=== PATIENT | male | born 1980 | race Caucasian/White ===

== ENCOUNTER 2017-01-20 10:05 | Day surgery (SDC) | payer OTHER ==
[~2017-01-20] VITALS: Ht 182.9 cm; Wt 86.5 kg
[2017-01-20] VITALS (12 sets, daily range): BP systolic 103–185; BP diastolic 59–129; PULSE 80–100; RESP 10–24; Ht 182.9 cm; Wt 86.5 kg
[2017-01-20] MEDS ORDERED: ROPIVACAINE 0.5 % 30 ML VIAL ONE ×2 (11:14→11:36)
[2017-01-20] MEDS ORDERED: METOCLOPRAMIDE 10 MG INJ ONE (11:36)
[2017-01-20] MEDS ORDERED: FENTAnyl 50 MCG/ML VIAL ONE (11:36)
[2017-01-20] MEDS ORDERED: PROPOFOL 20 ML ONE (11:36)
[2017-01-20] MEDS ORDERED: MIDAZOLAM 1 MG/ML 2 ML INJ ONE (11:36)
[2017-01-20] MEDS ORDERED: THROMBIN 5000 UNIT VIAL ONE (12:02)
[2017-01-20] MEDS ORDERED: HEPARIN 1000 UNITS/ML 10 ML INJ ONE (12:03)
--- NOTE | 2017-01-20 12:33 | HPN ---
Date/Time of Note Date/Time of Note DATE: 01/20/17 TIME: 12:33 Interval H&P Admission Note Pt. seen H&P reviewed: No system changes RANDOLPH MIGUEL MD Jan 20, 2017 12:33
[2017-01-20] MEDS ORDERED: SODIUM CL BACTERIOSTATIC 30 ML INJ ONE (12:51)
[2017-01-20] MEDS ORDERED: ONDANSETRON 4 MG INJ ONE (12:59)
[2017-01-20] MEDS ORDERED: KETOROLAC 30 MG INJ ONE (12:59)
[2017-01-20] MEDS ORDERED: HYDROmorphONE 2 MG/ML SYG ONE (12:59)
[2017-01-20] MEDS ORDERED: morphine 10 MG INJ IV PRN (13:00)
[2017-01-20] MEDS ORDERED: morphine 2 MG INJ IV PRN (13:00)
[2017-01-20] MEDS ORDERED: EPHEDrine SULFATE 50 MG/5 ML SYG ONE (13:06)
[2017-01-20] MEDS ORDERED: THROMBIN(HUM PLAS)/FIBRINOG/CA 5 ML VIAL TOP ONE (13:37)
[2017-01-20] MEDS ORDERED: POLYMYXIN/BACITRACIN 1L IRRIG IRR ONE (14:26)
[2017-01-20] MEDS ORDERED: POLYMYXIN/BACITRACIN 1L IRRIG ONE (14:51)
[2017-01-20] MEDS ORDERED: PROPOFOL 40 ML ONE (15:50)
[2017-01-20] MEDS ORDERED: BACITRACIN/POLYMYXIN 28.35 GM OINT TOP ONE (16:17)
[2017-01-20] MEDS ORDERED: HYDROmorphONE (0.2 MG/ML) 10ML SYG IV PRN ×2 (16:30)
[2017-01-20] MEDS ORDERED: hydrALAzine 20 MG INJ IV PRN (16:30)
[2017-01-20] MEDS ORDERED: MEPERIDINE 25 MG INJ IV PRN (16:30)
[2017-01-20] MEDS ORDERED: METOCLOPRAMIDE 10 MG INJ IV PRN (16:30)
[2017-01-20] MEDS ORDERED: DIPHENHYDRAMINE 50 MG INJ IV PRN (16:30)
[2017-01-20] MEDS ORDERED: LABETALOL HCL 20MG INJ IV PRN (16:30)
[2017-01-20] MEDS: HYDROmorphONE (0.2 MG/ML) 10ML SYG IV PRN ×2 (17:06→17:12)
[2017-01-20] MEDS: ONDANSETRON 4 MG INJ IV PRN ×2 (17:06→18:40)
--- NOTE | 2017-01-20 17:17 | SIPON ---
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 Operation/Procedure Performed Right knee arthroscopy with ACL reconstruction with hamstring autograft Right knee arthroscopy with partial medial meniscectomy Right knee arthroscopy with lateral meniscus repair Right knee arthroscopy with chondroplasty of the patellafemoral and medial compartment Application of bone marrow aspirate concentrate to the right knee Surgeon see signature line assistant professor of biochemistry RANDOLPH MIGUEL MD Second assist: ELIZABETH CIFUENTES Anesthesia: general, other (FASCIA FLASH) Estimated blood loss: minimal Transfusion Required none Specimen NONE Grafts/Implants MITEK ADJUSTABLE LOOP BUTTON MITEK 6-8 BIOINTRAFIX MITEK CANCELLOUS SCREW AND WASHER ARTHREX KIMBERLY BONE MARROW ASPIRATE CONCENTRATE Complications none RANDOLPH MIGUEL MD Jan 20, 2017 17:16
--- NOTE | 2017-01-20 17:17 | OPR ---
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 Operation/Procedure Performed Right knee arthroscopy with ACL reconstruction with hamstring autograft Right knee arthroscopy with partial medial meniscectomy Right knee arthroscopy with lateral meniscus repair Right knee arthroscopy with chondroplasty of the patellafemoral and medial compartment Application of bone marrow aspirate concentrate to the right knee Surgeon RANDOLPH MIGUEL MD Electrical Machinist FREDDIE CIFUENTES CRNA Anesthesia Type: general, other (FASCIA ILIACUS) Anesthesiologist: SAJI PRETTY MD Tourniquet Time: 110 MIN AT 250 MMhG Estimated Blood Loss: 0 - 10 ml's Transfusion none Specimen NONE Grafts/Implants MITEK ADJUSTABLE LOOP BUTTON MITEK 6-8 BIOINTRAFIX MITEK CANCELLOUS SCREW AND WASHER ARTHREX KIMBERLY BONE MARROW ASPIRATE CONCENTRATE Tubes/Drains NONE Complications none Pt Condition Post Procedure: stable Disposition: PACU Indications Patient is a 36-year-old gentleman sustained a right knee ACL rupture and meniscal tear several months ago. He was able to go through surgery at that time due to having to go to [facility]. He continued to have ongoing pain and instability and was indicated for surgical fixation. Risk Note: Patient was explained the risks and benefits of surgery and the patient's [facility] language including not limited to infection, bleeding, injury to blood vessels, nerves, ligaments or tendons. Risks of anesthesia, deep vein thrombosis and need for reduce future surgery. Patient acknowledged these risk by signing the surgical consent form. Procedure Description The patient was brought to the operating room and placed supine on the operating room table. General anesthesia was induced and a fascia iliacus block was placed. The right lower extremity was examined under anesthesia. Range of motion was 0 degrees of extension to 135 degrees of flexion. There was no varus or valgus or posterolateral instability. He had no instability to varus or valgus stress at 0 or 30 degrees. He had a 2+ Ricky and drawer with a positive pivot shift The right Lower extremity was then prepped and draped in the usual fashion. A tourniquet was placed proximally on the thigh over a bias stockinette. A timeout was taken and all parties in the room agreed as the correct patient, extremity and procedure. Attention was initially turned to the right iliac crest and using a small stab incision And a Jamshidi needle was placed into the right iliac crest and 60 cc of bone marrow aspirate was withdrawn and sent off for centrifugation to become a bone marrow aspirate concentrate. The wound was then irrigated and closed with 4-0 Monocryl and Steri-Strips and Tegaderm was placed over the wound. Attention was then turned to the knee. A standard anterolateral parapatellar stab wound was created. The knee joint was entered with a blunt-tipped obturator, followed by the 30-degree video arthroscope. An anteromedial portal was established under arthroscopic control. A routine arthroscopic survey was performed. The suprapatellar pouch was unremarkable. The undersurface of the patella was well-preserved. The patella appeared to track centrally within the trochlear groove. Trochlea showed grade II chondromalacia. The medial and lateral gutters were inspected and there was no loose body seen. There was no hypertrophied plica. The popliteal hiatus was entered and was unremarkable. The lateral compartment was entered. The lateral femoral condyle exhibited no chondromalacia and the lateral tibial plateau showed no chondromalacia. There was no chondromalacia adjacent to the notch. There was no chondromalacia along the central aspect of the weight bearing lateral tibial plateau. The lateral meniscus was examined and there is shown to be a radial tear in the white white and red white zone of the posterior horn extending into becoming a cleavage tear in the posterior horn and mid body. The white white zone tear was debrided with biters and naya. And then the area of the red white tear was gently debrided with a rasp, meniscal rasp, and then repaired using 3 Salas [employer] Nep[employer] fast T fix meniscal repairs sutures. At the end of the repair the meniscus was found to be firm and stable. The intercondylar notch was visualized. The anterior cruciate ligament was torn from its femoral origin. There was an empty lateral wall. Posteromedially there was no loose body seen. The posterior cruciate ligament was visualized and appeared intact. The medial compartment was entered. The articular surfaces of the medial femoral condyle and medial tibial plateau were visualized. There was grade I/II chondromalacia of the medial femoral condyle in an area of the central weightbearing portion felt soft on probing but did not break through to show a formal osteochondral defect. The meniscus was probed and found to be torn in both the posterior horn mid body and anterior horn which was debrided with both naya and biters to a firm stable rim. Set at 55 Attention was turned to reconstruction of the anterior cruciate ligament. Following exsanguination with an Esmarch bandage the tourniquet was inflated to 250 mm of mercury. Using a motorized shaver a limited notchplasty was performed, exposing the lateral wall and roof of the notch, identifying the [id number] position. The stump of the anterior cruciate ligament was debrided. A Vector guide was placed intra-articularly between the tibial spines in line with the anterior horn of the lateral meniscus. A Yuan wire was then inserted into the knee through a 2 cm incision made over the proximal medial tibia for the hamstring harvest. The incision was deepened through the subcutaneous tissue with subperiosteal dissection achieved. Bleeding points were coagulated with the Bovie electrocautery. The Semitendinosis and gracilis were harvested and taken to the back table, accommodating a 8.5 mm graft on the femoral side and 8.5 mm graft on the tibial side. Tibial drilling was then carried out first with a 6 mm followed by a 8.5 mm cylindrical reamer with the guide set at 55 degrees. Via an accessory medial portal, the Beath pin was drilled out the femoral cortex and skin with the knee in hyperflexion. The femoral tunnel was then created, with a spade tip guidewire, Depth-gauging confirmed a tunnel length of 40 mm. Then reaming proceeded, first with a 6 mm then an 8.5 mm drill to a depth of 25mm. A adjustable rigid loop Mitek button was selected. The graft was inserted intra -articularly and the Mitek button was deployed. The graft was cycled for 20 cycles with 25 pounds of force to pre-load the graft. Tibial fixation was carried out using a 6-8 BioIntra-Fix in 10 degrees of flexion with a posterior drawer. The ACL repair was then backed up with a Mitek cancellus screw and washer. At the completion of surgery the patient had a firm stable Ricky. There was a negative pivot shift. The patient had a 0 firm Ricky and a negative pivot shift. There was no evidence for any roof or lateral wall impingement. The tourniquet was deflated at 110 minutes. The knee was irrigated with two liters of lactated Ringer's solution. Excess fluid was drained. The tibial wounds were then copiously irrigated with bacitracin solution and closed in layers with #0, #2-0 and #3-0 Vicryl. The skin was reapproximated with #4-0 Monocryl. The knee was injected with 20 cc of 0.5% plain ropivacaine. The knee was then injected with 5 cc of bone marrow aspirate concentrate into the lateral compartment. A dry sterile dressing was applied, followed by a bulky bandage soaked in platelet poor plasma and Sof-Rol followed by an Davi bandage. A postoperative TROM brace was applied locked in full extension. The patient was awakened in the Operating Room and transported to the Recovery Room in satisfactory condition. The patient appeared to tolerate the procedure well. At the completion of surgery the patient had soft compartments, palpable pulses, and brisk capillary refill. There were no complications noted. RANDOLPH MIGUEL MD Jan 20, 2017 17:17
== END 2017-01-20 18:55 | disposition home or self-care (01) ==
LOC: SDS 10:05
PROVIDERS: ATTEND Orthopaedic Surgery
DX: M23.251 Derangement of posterior horn of lateral meniscus due to old tear or injury, right knee (principal); M23.203 Derangement of unspecified medial meniscus due to old tear or injury, right knee; S83.511D Sprain of anterior cruciate ligament of right knee, subsequent encounter; X58.XXXD Exposure to other specified factors, subsequent encounter; M94.261 Chondromalacia, right knee; I10 Essential (primary) hypertension
CPT/HCPCS: 29880; 29888; C1713; J1170; J1644; J1885; J2250; J2405; J2765; J2795; J3010; Z7512; Z7610; C9250